=== PATIENT | female | born 1960 | race Asian ===

== ENCOUNTER 2023-02-21 06:55 | Day surgery (SDC) | payer OTHER ==
[~2023-02-21] VITALS: Ht 157.5 cm; Wt 54.4 kg
[2023-02-21] MEDS ORDERED: fentaNYL CITRATE/PF 100 MCG/2 ML AMP ONE (07:57)
[2023-02-21] MEDS ORDERED: ONDANSETRON HCL 4 MG/2 ML VIAL ONE (07:57)
[2023-02-21] MEDS ORDERED: iopamidoL 50 ML VIAL IV ONE (09:00)
[2023-02-21] MEDS ORDERED: NORMAL SALINE 10 ML VIAL ONE (09:00)
[2023-02-21] MEDS ORDERED: LIDOCAINE 2%, 20 ML MDV ONE (09:00)
[2023-02-21] MEDS ORDERED: methylPREDNISolone ACETATE 40 MG/ML ONE (09:00)
[2023-02-21 09:45] VITALS: O2SAT 100
[2023-02-21] MEDS: MIDAZOLAM HCL 5 MG/5 ML VIAL ONE ×3 (09:57→10:02)
[2023-02-21] MEDS: DIPHENHYDRAMINE INJ 50 MG/ML VIAL ONE ×2 (10:01→10:03)
[2023-02-21 14:14] VITALS: BP_SYST 139; PULSE 66; RESP 17
== END 2023-02-21 11:31 | disposition home or self-care (01) ==
LOC: SDS 06:55 → SMU 06:56 → SDS 11:31
PROVIDERS: ATTEND Internal Medicine
DX: M51.16 Intervertebral disc disorders with radiculopathy, lumbar region (principal); M51.9 Unspecified thoracic, thoracolumbar and lumbosacral intervertebral disc disorder; M06.9 Rheumatoid arthritis, unspecified; E78.5 Hyperlipidemia, unspecified; Z79.899 Other long term (current) drug therapy
CPT/HCPCS: 62323; J1200; J2001; J1030; J2250; J3010; Q9967; 76000; J2405

== ENCOUNTER 2023-05-16 10:45 | Day surgery (SDC) | payer OTHER ==
[~2023-05-16] VITALS: Ht 157.5 cm; Wt 53.5 kg
[2023-05-16 12:58] VITALS: O2SAT 100
[2023-05-16] MEDS ORDERED: fentaNYL CITRATE/PF 100 MCG/2 ML AMP ONE (13:08)
[2023-05-16] MEDS ORDERED: DIPHENHYDRAMINE INJ 50 MG/ML VIAL ONE (13:08)
[2023-05-16] MEDS: MIDAZOLAM HCL 5 MG/5 ML VIAL ONE (13:21)
[2023-05-16 13:40] VITALS: BP_SYST 150; PULSE 72; RESP 16; TEMP 98.5
[2023-05-18] MEDS: MIDAZOLAM HCL 5 MG/5 ML VIAL ONE (13:23)
== END 2023-05-16 14:30 | disposition home or self-care (01) ==
LOC: SDS 10:45 → SMU 10:46 → SDS 14:30
PROVIDERS: ATTEND Internal Medicine
DX: M51.16 Intervertebral disc disorders with radiculopathy, lumbar region (principal); M51.9 Unspecified thoracic, thoracolumbar and lumbosacral intervertebral disc disorder; E78.5 Hyperlipidemia, unspecified; M06.9 Rheumatoid arthritis, unspecified; Z79.899 Other long term (current) drug therapy
CPT/HCPCS: 62323; J2250; J3010; 76000; J1200